=== PATIENT | female | born 1990 | race Caucasian/White ===

== ENCOUNTER 2021-06-26 14:47 | Outpatient (CLI) | payer OTHER, SELFPAY | END 2021-06-26 23:59 | disposition home or self-care (01) | LOC: LABSPEC 14:49 | PROVIDERS: PCP Family Medicine; Referring Provider Otolaryngology; Visit Provider Otolaryngology | DX: Z20.822 Contact with and (suspected) exposure to COVID-19 (principal) | CPT/HCPCS: 87635; U0003; U0005 ==

== ENCOUNTER 2021-07-11 08:07 | Day surgery (SDC) | payer OTHER, SELFPAY ==
[2021-07-11 08:34] LABS: Internal QC Validated? YES +Cl - CLEAR BKGD
[2021-07-11 08:35] LABS: Pregnancy, Urine Negative Negative
[2021-07-11] MEDS: Lactated Ringers 1,000 ML 15 ML IV (08:37)
[2021-07-11 08:38] VITALS: BP 139/91; PULSE 79; RESP 18; TEMP 36.6; O2SAT 99; BMI 58.4
--- NOTE | 2021-07-11 09:48 | OP.PCM_ITS ---
Problems Associated Problem List Diagnoses (1) Eustachian tube dysfunction: (2) Chronic serous otitis media of both ears: Report of Operation Date of Procedure: 07/11/21 Pre-Operative Diagnosis: 1. Eustachian tube dysfunction 2. chronic serous otitis media, right and left Post-Operative Diagnosis: 1. Eustachian tube dysfunction 2. chronic serous otitis media, right and left Surgery/Procedure Performed:: 1. nasal endoscopy 2. eustachian tube dilation, right and left 3. placement pressure equalization tubes, right and left ear Surgeon: Jimmie Salamanca Type of Anesthesia: General Description of Procedure: on the day of the procedure, after appropriate informed consent was obtained, the patient was brought to the operating room and placed in supine position on the operating table. she was placed under general endotracheal anesthesia by the anesthesiologist. the endotracheal tube was secured, the eyes were taped. the left ear was examined with the binocular operating microscope. a speculum was placed. the tympanic membrane was viewed in its entirety and found to be intact. a radial myringotomy was made in the a nterior inferior quadrant and a kinsey tympanostomy tube was placed. floxin otic drops were instilled. the right ear was examined with the binocular operating microscope. a speculum was placed. the tympanic membrane was viewed in its entirety and found to be intact. a radial myringotomy was made in the anterior inferior quadrant and a kinsey tympanostomy tube was placed. floxin otic drops were instilled. oxymetazoline soaked pledgets were used to decongest the nose. the zero degree endoscope was used to evaluate the nasopharynx, which was normal. the acclarent AERA eustachian tube dilation catheter was introduced into the left nasal cavity and gently inserted into the eustachain tube orifice until a soft stop was felt. it was inflated to 12 camilla for 2 minutes and retracted. the acclarent AERA eustachian tube dilation catheter was introduced into the right nasal cavity and gently inserted into the eustachain tube orifice until a soft stop was felt. it was inflated to 12 camilla for 2 minutes and retracted. areas of her right inferior turbinate and septal bony spur were cauterized. she was awoken from anesthesia and transferred to the PACU in stable condition.
--- NOTE | 2021-07-11 09:48 | PCM.DC ---
Discharge Instructions Diet Discharge Diet: No restrictions Activity Discharge Activity: Return to Normal Activity Dressing / Incision Call your doctor if your incision/area has: Increased Pain/ Swelling and Foul Smelling Discharge Follow Up Care Please Follow Up With: Jimmie Salamanca MD When: 1 month Test Results: Test results from this visit will be discussed in further detail at your follow-up appointment, if applicable. Discharge Plan Admission Attending Provider: Jimmie Salamanca Primary Care Provider: Care Physician,Fabiana Primary Discharge Orders/Prescriptions Prescriptions: No Action fluticasone propionate 50 mcg/actuation spray,suspension 2 spray INTRANASAL DAILY RF: 0 Disposition Discharge Orders: Discharge Patient (Routine); Ordered 07/11/21 Ordered By: Dr. Jimmie Salamanca
[2021-07-11] MEDS: Ciprofloxacin 0.3% 2.5ml Bottle 1 DRP (09:56)
[2021-07-11] MEDS: Oxymetazoline 0.05% 1 SPRAY SPRAY.BTL NASAL (09:56)
[2021-07-11 10:55] VITALS: BP 116/73; BP 139/91; PULSE 66; RESP 14; TEMP 36.9; O2SAT 95
[2021-07-11 11:00] VITALS: BP 120/71; BP 139/91; PULSE 75; RESP 16; O2SAT 96
[2021-07-11 11:15] VITALS: BP 116/68; BP 139/91; PULSE 59; RESP 16; O2SAT 96
[2021-07-11 11:25] VITALS: BP 126/72; BP 139/91; PULSE 65; RESP 18; TEMP 37.1; O2SAT 95
[2021-07-11 11:42] VITALS: BP 139/91
== END 2021-07-11 23:59 | disposition home or self-care (01) ==
LOC: SDC 08:09 → AC 08:09
PROVIDERS: Anesthesiology; Referring Provider Otolaryngology; Visit Provider Otolaryngology
PROC: (CPT 69799; principal; 2021-07-11 09:30)
DX: H69.83 Other specified disorders of Eustachian tube, bilateral (principal); H65.06 Acute serous otitis media, recurrent, bilateral; H65.23 Chronic serous otitis media, bilateral; Z77.22 Contact with and (suspected) exposure to environmental tobacco smoke (acute) (chronic)
CPT/HCPCS: 69706; 69436; 00160; 81025; 87426; C9803; J7120; J2405

== ENCOUNTER → 2022-10-10 | Outpatient (CLI) | payer OTHER, SELFPAY ==
[2022-10-12 06:09] LABS: Chlamydia By Nucleic Acid AMP Negative (Negative); Gonococcus By Nucleic Acid AMP Negative (Negative)
[2022-10-18 16:09] LABS: HPV APTIMA, High Risk Negative (Negative)
== END | disposition home or self-care (01) ==
LOC: LABSPEC 11:25
PROVIDERS: Referring Provider Nurse Practitioner Women's Health; Visit Provider Nurse Practitioner Women's Health
DX: Z12.4 Encounter for screening for malignant neoplasm of cervix (principal); Z11.3 Encounter for screening for infections with a predominantly sexual mode of transmission
CPT/HCPCS: 87491; 87591; 87624; 88175; G0145

== ENCOUNTER → 2022-11-27 | Outpatient (CLI) | payer OTHER, SELFPAY ==
[2022-11-27 09:38] LABS: Progesterone Level 0.27 ng/mL (See Comment)
[2022-11-27 09:43] LABS: Prolactin 10.3 ng/mL; Thyroid Stim Hormone (TSH) 2.84 uIU/mL (0.358-3.74)
[2022-12-02 04:07] LABS: DHEA Sulfate 99.3 ug/dL (84.8-378.0); Testosterone Free 0.6 pg/mL (0.0-4.2)
== END | disposition home or self-care (01) ==
PROVIDERS: Referring Provider Nurse Practitioner Women's Health; Visit Provider Nurse Practitioner Women's Health
DX: N97.0 Female infertility associated with anovulation (principal)
CPT/HCPCS: 36415; 82627; 84144; 84146; 84402; 84443; 82626

== ENCOUNTER → 2023-01-29 | Outpatient (CLI) | payer OTHER, SELFPAY ==
[2023-01-29 13:27] LABS: Glucose GTT- Fasting 92 mg/dL (74-106)
[2023-01-29 13:29] LABS: Hemoglobin A1c 5.4 % (3.8-5.6)
[2023-01-29 13:35] LABS: Insulin 75GTT - Fasting 8.9 mU/L (2.6-37.6)
[2023-01-29 13:40] LABS: Glucose GTT-30 minutes 139 mg/dL (110-170)
[2023-01-29 13:47] LABS: Insulin 75GTT - 30 MIN 60.4 mU/L (Not Estab.)
[2023-01-29 13:51] LABS: ALB/GLOB Ratio 0.7 RATIO (0.9-2.4); AST(SGOT) 18 U/L (15-37); Alanine Aminotransfer ALT/SGPT 24 U/L (13-56); Albumin, Serum 3.2 g/dL (3.2-5.0); Alkaline Phosphatase 88 U/L (45-117); Anion Gap 6 (5-15); BUN 8 mg/dL (7-18); BUN/Creat Ratio 14.9 RATIO (10-20); Calcium,Total 8.4 mg/dL (8.5-10.1); Chloride 106 mmol/L (98-107); Creatinine, Serum 0.54 mg/dL (0.55-1.02); EST Glomerular Filtration Rate 138 mL/min (>60); Est Glom Filt Rate - Afr Amer 167 mL/min (>60); Globulin 4.8 g/dL (2.2-4.2); Glucose 87 mg/dL (74-106); Potassium 3.5 mmol/L (3.5-5.1); Sodium Level 138 mmol/L (136-145); Thyroid Stim Hormone (TSH) 2.66 uIU/mL (0.358-3.74)
[2023-01-29 14:27] LABS: HIV - WCH Non-Reactive (Nonreactive); Hepatitis B Surface Antigen Non-Reactive (Nonreactive); Hepatitis C Antibody Non-Reactive (Nonreactive); Rubella IgG Reactive (Nonreactive); Syphilis Antibodies Non-reactive
[2023-01-29 14:44] LABS: Glucose GTT- 1 Hour 149 mg/dL (120-170)
[2023-01-29 14:51] LABS: Insulin 75GTT - 60 min 79.7 mU/L (Not Estab)
[2023-01-29 16:28] LABS: Glucose GTT- 2 Hour 130 mg/dL (70-120)
[2023-01-29 16:36] LABS: Insulin 75GTT - 120 min 74.4 mU/L (Not Estab.)
[2023-01-30 06:09] LABS: V-Zoster IgG (Immunity) 630 index (Immune >165)
[2023-02-01 14:09] LABS: 17-Hydroxyprogesterone < 10 ng/dL (.)
== END | disposition home or self-care (01) ==
LOC: LAB 12:16
PROVIDERS: Referring Provider Obstetrics & Gynecology Reproductive Endocrinology; Visit Provider Obstetrics & Gynecology Reproductive Endocrinology
DX: Z01.83 Encounter for blood typing (principal); E22.1 Hyperprolactinemia; E03.9 Hypothyroidism, unspecified; Z11.59 Encounter for screening for other viral diseases; E16.8 Other specified disorders of pancreatic internal secretion; E28.1 Androgen excess; Z11.8 Encounter for screening for other infectious and parasitic diseases
CPT/HCPCS: 36415; 80053; 82627; 82951; 82952; 83036; 83498; 83525; 84146; 84403; 84443; 86703; 86762; 86780; 86787; 86803; 86850; 86900; 86901; 87340; 87491; 87591; 82626

== ENCOUNTER → 2023-02-08 | Outpatient (CLI) | payer OTHER, SELFPAY ==
[2023-02-08 16:26] LABS: T4 Free Direct 1.23 ng/dL (0.76-1.46); Thyroid Stim Hormone (TSH) 2.06 uIU/mL (0.358-3.74)
== END | disposition home or self-care (01) ==
PROVIDERS: Referring Provider Obstetrics & Gynecology Reproductive Endocrinology; Visit Provider Obstetrics & Gynecology Reproductive Endocrinology
DX: E03.9 Hypothyroidism, unspecified (principal)
CPT/HCPCS: 36415; 84439; 84443

== ENCOUNTER → 2023-05-28 | Outpatient (CLI) | payer OTHER, SELFPAY ==
[2023-05-30 06:09] LABS: CMV Acute Antibody IgM < 30.0 AU/mL (0.0-29.9); CMV Antibody IgG < 0.60 U/mL (0.00-0.59)
== END | disposition home or self-care (01) ==
LOC: LAB 15:59
PROVIDERS: Visit Provider Obstetrics & Gynecology Reproductive Endocrinology
DX: Z11.3 Encounter for screening for infections with a predominantly sexual mode of transmission (principal)
CPT/HCPCS: 36415; 86644; 86645